=== PATIENT | male | born 1960 | race African-American/Black ===

== ENCOUNTER 2020-06-03 12:34 | Emergency (ER) | payer SELFPAY ==
[~2020-06-03] VITALS: Ht 182.9 cm; Wt 90.7 kg
[2020-06-03 12:47] VITALS: BP 142/78
== END 2020-06-03 14:17 | disposition left against medical advice (07) ==
LOC: EDBD 12:34 → ER 12:34
DX: F20.9 Schizophrenia, unspecified (principal); F31.9 Bipolar disorder, unspecified; F17.210 Nicotine dependence, cigarettes, uncomplicated; Z59.0 Homelessness

== ENCOUNTER 2020-06-27 19:12 | Emergency (ER) | payer SELFPAY ==
[~2020-06-27] VITALS: Ht 205.7 cm; Wt 140.6 kg
[2020-06-27 20:00] VITALS: BP 129/88
[2020-06-27] MEDS ORDERED: ACCU-CHEK COMFORT CURVE STRIP VI ONE (20:15)
[2020-06-27 21:57] LABS: Basophils # (auto) 0.1 10 ^3/uL (0-0.2); Basophils % (auto) 0.8 % (0.0-2.0); Eosinophils # (auto) 0.1 10 ^3/uL (0-0.8); Lymphocytes # (auto) 2.2 10 ^3/uL (0.4-5.4); Monocytes # (auto) 0.7 10 ^3/uL (0-1.3); Neutrophils % (auto) 56.8 % (37.0-80.0)
[2020-06-27 22:00] LABS: Eosinophils % (auto) 2.1 % (0.0-7.0); Hematocrit 40.8 % (41.0-53.0); Hemoglobin 12.8 g/dL (13.5-17.5); Lymphocytes % (auto) 30.6 % (10.0-50.0); Mean Corpuscular Hemoglobin 25.9 pg (28.0-32.0); Mean Corpuscular Hgb Conc. 31.3 g/dL (32.0-36.0); Mean Corpuscular Volume 82.6 fL (80.0-100.0); Monocytes % (auto) 9.7 % (0.0-12.0); Nucleated Red Blood Cells % 0.1 %; Platelet Count (auto) 257 10^3/uL (140-450); Red Blood Cells 4.95 10^6/uL (4.5-5.90); Red Cell Distribution Width 17.4 % (11.8-14.3); White Blood Cell 7.1 10^3/uL (4.4-10.8)
[2020-06-27 22:14] LABS: Potassium 3.9 mmol/L (3.5-5.1); Salicylate 1.8 mg/dL (2.8-20.0)
[2020-06-27 22:20] LABS: Albumin 3.6 g/dL (3.4-5.0); BUN/Creatinine Ratio 18.8; Bilirubin, Total 0.4 mg/dL (0.2-1.0); Calcium 9.1 mg/dL (8.5-10.1); Total Protein 7.6 g/dL (6.4-8.2)
[2020-06-27 22:23] LABS: Acetaminophen < 2.0 ug/mL (10-30)
== END 2020-06-28 07:30 | disposition left against medical advice (07) ==
LOC: ER 19:12
DX: F23 Brief psychotic disorder (principal); R45.850 Homicidal ideations
CPT/HCPCS: 36415; 73090; 73130; 80053; 80329; 85025

== ENCOUNTER 2020-07-25 17:50 | Inpatient (IN) | payer OTHER ==
[~2020-07-25] VITALS: Ht 188 cm; Wt 98.6 kg
[2020-07-25] MEDS ORDERED: DEXTROSE (50%) 50ML SYRG IV ONE (18:30)
[2020-07-25 20:02] LABS: Basophils # (auto) 0 10 ^3/uL (0-0.2); Basophils % (auto) 0.3 % (0.0-2.0); Eosinophils # (auto) 0 10 ^3/uL (0-0.8); Hematocrit 40.8 % (41.0-53.0); Hemoglobin 13.1 g/dL (13.5-17.5); Lymphocytes # (auto) 0.6 10 ^3/uL (0.4-5.4); Lymphocytes % (auto) 29.5 % (10.0-50.0); Mean Corpuscular Hemoglobin 26.7 pg (28.0-32.0); Mean Corpuscular Hgb Conc. 32.2 g/dL (32.0-36.0); Mean Corpuscular Volume 82.8 fL (80.0-100.0); Monocytes # (auto) 0.2 10 ^3/uL (0-1.3); Neutrophils # (auto) 1.3 10 ^3/uL (1.6-8.6); Neutrophils % (auto) 61.2 % (37.0-80.0); Nucleated Red Blood Cells % 0.3 %; Platelet Count (auto) 108 10^3/uL (140-450); Red Blood Cells 4.93 10^6/uL (4.5-5.90); Red Cell Distribution Width 17.7 % (11.8-14.3); White Blood Cell 2.1 10^3/uL (4.4-10.8)
[2020-07-25 20:21] LABS: Albumin 3.4 g/dL (3.4-5.0); Calcium 9.2 mg/dL (8.5-10.1); Magnesium 2.3 mg/dL (1.6-2.6); Potassium 4.3 mmol/L (3.5-5.1)
[2020-07-25 20:26] LABS: BUN/Creatinine Ratio 31.3; Bilirubin, Total 0.2 mg/dL (0.2-1.0); Total Protein 7.6 g/dL (6.4-8.2)
[2020-07-26] MEDS ORDERED: D5W/SOD CHL 0.45% 1,000 ML IV ONE (00:15)
[2020-07-26] MEDS ORDERED: NALOXONE HCL 0.4 MG/ML VIAL IV ONE ×2 (02:30→05:45)
[2020-07-26] MEDS ORDERED: LORazepam 2MG/ML-1ML VIAL IV ONE (10:30)
[2020-07-27] MEDS ORDERED: DEXTROSE (50%) 50ML SYRG IV ONE (04:45)
[2020-07-27] MEDS ORDERED: D5W/SOD CHL 0.45% 1,000 ML IV SCH (07:30)
[2020-07-27] MEDS ORDERED: InsuLIN REG 1unit/0.01ml Soln (100units/ml) SC SCH (08:00)
[2020-07-27] MEDS: DEXTROSE (50%) 50ML SYRG IV PRN (08:01)
[2020-07-27] MEDS: ACCU-CHEK COMFORT CURVE STRIP VI SCH ×4 (08:01→20:12)
[2020-07-27 09:43] LABS: Urine WBC None Seen /hpf (0 - 3)
[2020-07-27] MEDS ORDERED: NITROGLYCERIN 0.4 MG SL TAB SL PRN (10:00)
[2020-07-27] MEDS ORDERED: MORPHINE SULF INJ 2 MG/ML SYRINGE 1ML IV PRN (10:00)
[2020-07-27 10:02] LABS: Urine Bacteria NONE SEEN /hpf (None Seen); Urine Blood Negative /uL (Negative); Urine Specific Gravity 1.013 (1.001-1.035); Urine WBC None Seen /hpf (0 - 3)
[2020-07-27 10:16] LABS: Alcohol, Urine < 3.0 mg/dL (0-10); Amphetamine Screen, Urine NEGATIVE (NEGATIVE); Barbiturate Scree,Urine NEGATIVE (NEGATIVE); Benzodiazephine Screen, Urine NEGATIVE (NEGATIVE); Cannabinoid Screen, Urine NEGATIVE (NEGATIVE); Cocaine Screen, Urine NEGATIVE (NEGATIVE); Opiate Scree,Urine NEGATIVE (NEGATIVE); Phencyclidine Screen, Urine NEGATIVE (NEGATIVE)
[2020-07-27] MEDS: SODIUM CHLORIDE 0.9% 1,000 ML IV SCH ×2 (10:29→22:15)
[2020-07-27 11:05] LABS: Urine Bacteria NONE SEEN /hpf (None Seen); Urine Blood Negative /uL (Negative); Urine Specific Gravity 1.013 (1.001-1.035)
[2020-07-27 16:40] VITALS: BP 117/77
[2020-07-27] MEDS: FAMOTIDINE 20 MG TAB PO SCH (22:15)
[2020-07-28] VITALS: BP 112/79
[2020-07-28] MEDS: ACCU-CHEK COMFORT CURVE STRIP VI SCH ×6 (04:01→20:02)
[2020-07-28] MEDS: SODIUM CHLORIDE 0.9% 1,000 ML IV SCH (06:15)
[2020-07-28 07:28] LABS: Basophils # (auto) 0 10 ^3/uL (0-0.2); Hemoglobin 13.7 g/dL (13.5-17.5); Lymphocytes # (auto) 0.7 10 ^3/uL (0.4-5.4); Monocytes # (auto) 0.4 10 ^3/uL (0-1.3); Neutrophils # (auto) 1.8 10 ^3/uL (1.6-8.6); Nucleated Red Blood Cells % 0.6 %
[2020-07-28 07:32] LABS: Basophils % (auto) 0.2 % (0.0-2.0); Eosinophils # (auto) 0 10 ^3/uL (0-0.8); Eosinophils % (auto) 1.4 % (0.0-7.0); Hematocrit 42.1 % (41.0-53.0); Lymphocytes % (auto) 24.1 % (10.0-50.0); Mean Corpuscular Hemoglobin 26.6 pg (28.0-32.0); Mean Corpuscular Hgb Conc. 32.5 g/dL (32.0-36.0); Monocytes % (auto) 12.3 % (0.0-12.0); Platelet Count (auto) 97 10^3/uL (140-450); Red Blood Cells 5.14 10^6/uL (4.5-5.90); Red Cell Distribution Width 17.4 % (11.8-14.3); White Blood Cell 2.9 10^3/uL (4.4-10.8)
[2020-07-28 07:43] LABS: Potassium 4.2 mmol/L (3.5-5.1)
[2020-07-28 07:54] LABS: Albumin 2.9 g/dL (3.4-5.0); Bilirubin, Total 0.3 mg/dL (0.2-1.0); Calcium 9.2 mg/dL (8.5-10.1)
[2020-07-28 09:00] VITALS: BP 111/69
[2020-07-28] MEDS: FAMOTIDINE 20 MG TAB PO SCH ×2 (11:29→21:48)
[2020-07-28] MEDS: ASPirin 81 mg TAB PO SCH (11:29)
[2020-07-28] MEDS: THIAMINE 100mg/ml INJ (200mg/2ml VIAL) IV SCH (13:30)
[2020-07-28] MEDS: D5W/SOD CHLO 0.9% 1,000 ML IV SCH ×2 (13:42→21:48)
[2020-07-28 16:00] VITALS: BP 105/57
[2020-07-28 22:00] VITALS: BP 126/77
[2020-07-29] MEDS: ACCU-CHEK COMFORT CURVE STRIP VI SCH ×7 (00:26→23:10)
[2020-07-29] MEDS ORDERED: FUROSEMIDE 40 MG/4 ML VIAL IV ONE (03:15)
[2020-07-29] MEDS ORDERED: FUROSEMIDE 40 MG/4 ML VIAL ONE (03:18)
[2020-07-29] MEDS: DEXTROSE (50%) 50ML SYRG IV PRN (04:42)
[2020-07-29] MEDS: D5W/SOD CHLO 0.9% 1,000 ML IV SCH ×2 (05:30→13:30)
[2020-07-29 05:41] VITALS: BP 113/69
[2020-07-29 06:48] LABS: Basophils # (auto) 0 10 ^3/uL (0-0.2); Basophils % (auto) 0.2 % (0.0-2.0); Eosinophils # (auto) 0 10 ^3/uL (0-0.8); Eosinophils % (auto) 0.1 % (0.0-7.0); Hemoglobin 15.2 g/dL (13.5-17.5); Neutrophils # (auto) 8.6 10 ^3/uL (1.6-8.6); Nucleated Red Blood Cells % 0.2 %; Red Cell Distribution Width 17.3 % (11.8-14.3)
[2020-07-29 06:50] LABS: Hematocrit 46.6 % (41.0-53.0); Lymphocytes # (auto) 0.3 10 ^3/uL (0.4-5.4); Lymphocytes % (auto) 3.6 % (10.0-50.0); Mean Corpuscular Hemoglobin 26.7 pg (28.0-32.0); Mean Corpuscular Hgb Conc. 32.6 g/dL (32.0-36.0); Mean Corpuscular Volume 81.8 fL (80.0-100.0); Monocytes # (auto) 0.5 10 ^3/uL (0-1.3); Monocytes % (auto) 5.7 % (0.0-12.0); Neutrophils % (auto) 90.4 % (37.0-80.0); Platelet Count (auto) 89 10^3/uL (140-450); White Blood Cell 9.5 10^3/uL (4.4-10.8)
[2020-07-29 07:06] LABS: Albumin 3.3 g/dL (3.4-5.0); Calcium 9.6 mg/dL (8.5-10.1); Potassium 4.2 mmol/L (3.5-5.1)
[2020-07-29 07:12] LABS: Bilirubin, Total 0.4 mg/dL (0.2-1.0); Total Protein 7.8 g/dL (6.4-8.2)
[2020-07-29 08:00] VITALS: BP 104/67
[2020-07-29] MEDS: ASPirin 81 mg TAB PO SCH (10:23)
[2020-07-29] MEDS: THIAMINE 100mg/ml INJ (200mg/2ml VIAL) IV SCH (10:23)
[2020-07-29] MEDS: FAMOTIDINE 20 MG TAB PO SCH ×2 (10:24→23:10)
[2020-07-29] MEDS: FUROSEMIDE 40 MG/4 ML VIAL IV SCH ×2 (10:26→18:53)
[2020-07-29] MEDS ORDERED: LORazepam 2MG/ML-1ML VIAL IV ONE (11:45)
[2020-07-29 16:00] VITALS: BP 100/67
[2020-07-29 22:00] VITALS: BP 99/64
[2020-07-30 05:00] VITALS: BP 101/67
[2020-07-30] MEDS: D5W/SOD CHLO 0.9% 1,000 ML IV SCH ×4 (05:30→21:30)
[2020-07-30] MEDS: FUROSEMIDE 40 MG/4 ML VIAL IV SCH ×2 (05:49→18:26)
[2020-07-30] MEDS: ACCU-CHEK COMFORT CURVE STRIP VI SCH ×5 (05:49→20:22)
[2020-07-30 08:00] VITALS: BP 114/60
[2020-07-30] MEDS: FAMOTIDINE 20 MG TAB PO SCH ×2 (10:44→21:52)
[2020-07-30] MEDS: ASPirin 81 mg TAB PO SCH (10:44)
[2020-07-30] MEDS: THIAMINE 100mg/ml INJ (200mg/2ml VIAL) IV SCH (10:44)
[2020-07-30 16:00] VITALS: BP 102/45
[2020-07-30 22:00] VITALS: BP 107/68
[2020-07-30] MEDS ORDERED: TEMAZEPAM 15 MG CAP PO ONE (22:30)
[2020-07-31] MEDS: ACCU-CHEK COMFORT CURVE STRIP VI SCH ×6 (04:03→20:13)
[2020-07-31 05:00] VITALS: BP 133/69
[2020-07-31] MEDS: D5W/SOD CHLO 0.9% 1,000 ML IV SCH ×3 (05:30→20:34)
[2020-07-31] MEDS: FUROSEMIDE 40 MG/4 ML VIAL IV SCH (06:00)
[2020-07-31 08:10] VITALS: BP 126/64
[2020-07-31 09:00] VITALS: BP 126/64
[2020-07-31] MEDS: ASPirin 81 mg TAB PO SCH (09:19)
[2020-07-31] MEDS: FAMOTIDINE 20 MG TAB PO SCH ×2 (09:19→22:00)
[2020-07-31] MEDS: THIAMINE 100mg/ml INJ (200mg/2ml VIAL) IV SCH (09:19)
[2020-07-31 12:00] VITALS: BP 100/66
[2020-07-31] MEDS: FUROSEMIDE 20 MG TAB PO SCH (17:52)
[2020-07-31] MEDS ORDERED: TEMAZEPAM 15 MG CAP PO ONE (22:00)
[2020-08-01] MEDS: ACCU-CHEK COMFORT CURVE STRIP VI SCH ×6 (00:54→19:58)
[2020-08-01] MEDS: D5W/SOD CHLO 0.9% 1,000 ML IV SCH ×3 (04:42→20:32)
[2020-08-01 05:22] VITALS: BP 112/72
[2020-08-01] MEDS: FUROSEMIDE 20 MG TAB PO SCH ×2 (06:15→17:15)
[2020-08-01 07:46] VITALS: BP 121/67
[2020-08-01] MEDS: FAMOTIDINE 20 MG TAB PO SCH ×2 (11:13→21:50)
[2020-08-01] MEDS: THIAMINE 100mg/ml INJ (200mg/2ml VIAL) IV SCH (11:13)
[2020-08-01] MEDS: ASPirin 81 mg TAB PO SCH (11:13)
[2020-08-01 16:10] VITALS: BP 129/73
[2020-08-01 21:22] VITALS: BP 112/72
[2020-08-02] MEDS: ACCU-CHEK COMFORT CURVE STRIP VI SCH ×6 (00:45→20:24)
[2020-08-02 04:32] VITALS: BP 108/66
[2020-08-02] MEDS: D5W/SOD CHLO 0.9% 1,000 ML IV SCH ×3 (06:18→21:14)
[2020-08-02] MEDS: FUROSEMIDE 20 MG TAB PO SCH ×2 (06:25→18:09)
[2020-08-02 08:05] VITALS: BP 122/62
[2020-08-02] MEDS: THIAMINE 100mg/ml INJ (200mg/2ml VIAL) IV SCH (10:24)
[2020-08-02] MEDS: ASPirin 81 mg TAB PO SCH (10:25)
[2020-08-02] MEDS: FAMOTIDINE 20 MG TAB PO SCH ×2 (10:25→22:25)
[2020-08-02 13:00] VITALS: BP 125/65
[2020-08-02 17:10] VITALS: BP 128/68
[2020-08-02 21:02] VITALS: BP 117/78
[2020-08-03] MEDS: ACCU-CHEK COMFORT CURVE STRIP VI SCH ×6 (00:15→21:21)
[2020-08-03 05:05] VITALS: BP 114/69
[2020-08-03] MEDS: D5W/SOD CHLO 0.9% 1,000 ML IV SCH ×3 (05:52→21:30)
[2020-08-03] MEDS: FUROSEMIDE 20 MG TAB PO SCH ×2 (05:53→17:46)
[2020-08-03 08:00] VITALS: BP 119/79
[2020-08-03] MEDS: ASPirin 81 mg TAB PO SCH (09:37)
[2020-08-03] MEDS: FAMOTIDINE 20 MG TAB PO SCH ×2 (09:38→22:07)
[2020-08-03] MEDS: THIAMINE 100mg/ml INJ (200mg/2ml VIAL) IV SCH ×2 (09:38→10:00)
[2020-08-03 17:00] VITALS: BP 136/72
[2020-08-03 22:00] VITALS: BP 120/67
[2020-08-04] MEDS: ACCU-CHEK COMFORT CURVE STRIP VI SCH ×6 (00:24→21:29)
[2020-08-04 05:00] VITALS: BP 124/66
[2020-08-04] MEDS: D5W/SOD CHLO 0.9% 1,000 ML IV SCH ×3 (05:30→21:29)
[2020-08-04] MEDS: FUROSEMIDE 20 MG TAB PO SCH ×2 (06:26→18:00)
[2020-08-04 08:00] VITALS: BP 126/79
[2020-08-04] MEDS: ASPirin 81 mg TAB PO SCH (09:30)
[2020-08-04] MEDS: FAMOTIDINE 20 MG TAB PO SCH ×2 (09:30→23:16)
[2020-08-04] MEDS: THIAMINE 100mg/ml INJ (200mg/2ml VIAL) IV SCH (10:00)
[2020-08-04 16:00] VITALS: BP 112/74
[2020-08-05] VITALS: BP 121/71
[2020-08-05] MEDS: ACCU-CHEK COMFORT CURVE STRIP VI SCH ×6 (00:14→22:23)
[2020-08-05] MEDS: D5W/SOD CHLO 0.9% 1,000 ML IV SCH ×3 (05:30→21:30)
[2020-08-05] MEDS: FUROSEMIDE 20 MG TAB PO SCH ×2 (06:23→18:37)
[2020-08-05 08:00] VITALS: BP 122/67
[2020-08-05 08:35] LABS: Mean Corpuscular Hemoglobin 26.5 pg (28.0-32.0); Mean Corpuscular Hgb Conc. 32.5 g/dL (32.0-36.0); Mean Corpuscular Volume 81.5 fL (80.0-100.0); Platelet Count (auto) 218 10^3/uL (140-450); Red Blood Cells 5.28 10^6/uL (4.5-5.90); Red Cell Distribution Width 16.3 % (11.8-14.3); White Blood Cell 4.5 10^3/uL (4.4-10.8)
[2020-08-05 08:47] LABS: Basophils % (manual) 0 (0.0-2.0); Blast Cells 0; Eosinophils % (manual) 0 (0-7); Myelocytes % 0; Promyelocytes % 0; Reactive Lymphocytes 0
[2020-08-05 09:26] LABS: Albumin 3.1 g/dL (3.4-5.0); Calcium 8.8 mg/dL (8.5-10.1); Potassium 3.9 mmol/L (3.5-5.1)
[2020-08-05 09:29] LABS: BUN/Creatinine Ratio 22.8; Bilirubin, Total 0.4 mg/dL (0.2-1.0); Total Protein 8.2 g/dL (6.4-8.2)
[2020-08-05] MEDS: THIAMINE 100mg/ml INJ (200mg/2ml VIAL) IV SCH (10:00)
[2020-08-05] MEDS: FAMOTIDINE 20 MG TAB PO SCH ×2 (10:16→22:19)
[2020-08-05] MEDS: ASPirin 81 mg TAB PO SCH (10:16)
[2020-08-05 12:42] LABS: Band Neutrophils % (manual) 1; Lymphocytes % (manual) 18 (10.0-50.0); Metamyelocytes % 1; Monocytes % (manual) 21 (0-12)
[2020-08-05 13:22] LABS: INR 1.05 (0.9-1.15)
[2020-08-05 16:19] VITALS: BP 107/71
[2020-08-05 23:53] VITALS: BP 110/49
[2020-08-06] MEDS: ACCU-CHEK COMFORT CURVE STRIP VI SCH ×7 (00:30→23:58)
[2020-08-06 04:41] VITALS: BP 123/68
[2020-08-06] MEDS: D5W/SOD CHLO 0.9% 1,000 ML IV SCH (05:30)
[2020-08-06] MEDS: FUROSEMIDE 20 MG TAB PO SCH ×2 (06:20→18:00)
[2020-08-06 08:17] VITALS: BP 111/71
[2020-08-06] MEDS: THIAMINE 100mg/ml INJ (200mg/2ml VIAL) IV SCH (10:00)
[2020-08-06] MEDS: FAMOTIDINE 20 MG TAB PO SCH ×2 (10:04→21:03)
[2020-08-06] MEDS: ASPirin 81 mg TAB PO SCH (10:04)
[2020-08-06 16:09] VITALS: BP 100/60
[2020-08-06 22:00] VITALS: BP 113/60
[2020-08-07] MEDS: ACCU-CHEK COMFORT CURVE STRIP VI SCH ×5 (04:12→21:18)
[2020-08-07 05:02] VITALS: BP 129/68
[2020-08-07] MEDS: FUROSEMIDE 20 MG TAB PO SCH ×2 (06:23→17:59)
[2020-08-07 07:45] VITALS: BP 118/64
[2020-08-07 08:15] VITALS: BP 118/64
[2020-08-07 08:32] LABS: Hematocrit 41.2 % (41.0-53.0); Hemoglobin 13.8 g/dL (13.5-17.5); Mean Corpuscular Hemoglobin 27.1 pg (28.0-32.0); Mean Corpuscular Hgb Conc. 33.4 g/dL (32.0-36.0); Mean Corpuscular Volume 81.1 fL (80.0-100.0); Platelet Count (auto) 261 10^3/uL (140-450); Red Blood Cells 5.08 10^6/uL (4.5-5.90); Red Cell Distribution Width 16.3 % (11.8-14.3); White Blood Cell 3.3 10^3/uL (4.4-10.8)
[2020-08-07 08:40] LABS: Basophils % (manual) 0 (0.0-2.0); Blast Cells 0; Metamyelocytes % 0; Promyelocytes % 0; Reactive Lymphocytes 0
[2020-08-07 08:45] LABS: Potassium 3.5 mmol/L (3.5-5.1)
[2020-08-07 08:50] LABS: Albumin 3.1 g/dL (3.4-5.0); BUN/Creatinine Ratio 18.7; Bilirubin, Total 0.3 mg/dL (0.2-1.0); Calcium 8.4 mg/dL (8.5-10.1)
[2020-08-07] MEDS: ASPirin 81 mg TAB PO SCH (09:01)
[2020-08-07] MEDS: FAMOTIDINE 20 MG TAB PO SCH ×2 (09:01→22:34)
[2020-08-07] MEDS: THIAMINE 100mg/ml INJ (200mg/2ml VIAL) IV SCH (09:01)
[2020-08-07 14:26] LABS: Band Neutrophils % (manual) 14; Eosinophils % (manual) 1 (0-7); Lymphocytes % (manual) 32 (10.0-50.0); Monocytes % (manual) 26 (0-12); Myelocytes % 1
[2020-08-07 15:37] VITALS: BP 111/66
[2020-08-07 22:00] VITALS: BP 116/61
[2020-08-08] MEDS: ACCU-CHEK COMFORT CURVE STRIP VI SCH ×7 (04:13→23:39)
[2020-08-08 05:00] VITALS: BP 105/67
[2020-08-08] MEDS: FUROSEMIDE 20 MG TAB PO SCH ×2 (06:00→17:15)
[2020-08-08 09:00] VITALS: BP 120/68
[2020-08-08] MEDS: ASPirin 81 mg TAB PO SCH (09:13)
[2020-08-08] MEDS: THIAMINE 100mg/ml INJ (200mg/2ml VIAL) IV SCH (09:13)
[2020-08-08] MEDS: FAMOTIDINE 20 MG TAB PO SCH ×2 (09:13→23:00)
[2020-08-08 16:00] VITALS: BP 127/67
[2020-08-08 22:00] VITALS: BP 109/78
[2020-08-09] MEDS: ACCU-CHEK COMFORT CURVE STRIP VI SCH ×5 (03:53→20:45)
[2020-08-09 05:00] VITALS: BP 119/72
[2020-08-09] MEDS: FUROSEMIDE 20 MG TAB PO SCH ×2 (05:42→17:34)
[2020-08-09 07:31] LABS: Basophils # (auto) 0 10 ^3/uL (0-0.2); Basophils % (auto) 0.6 % (0.0-2.0); Eosinophils # (auto) 0 10 ^3/uL (0-0.8); Lymphocytes # (auto) 1.1 10 ^3/uL (0.4-5.4); Mean Corpuscular Volume 80.7 fL (80.0-100.0); Monocytes # (auto) 0.5 10 ^3/uL (0-1.3); Neutrophils # (auto) 1.7 10 ^3/uL (1.6-8.6); Nucleated Red Blood Cells % 0.2 %; White Blood Cell 3.3 10^3/uL (4.4-10.8)
[2020-08-09 07:33] LABS: Eosinophils % (auto) 0.7 % (0.0-7.0); Hematocrit 40.5 % (41.0-53.0); Hemoglobin 13.6 g/dL (13.5-17.5); Lymphocytes % (auto) 32.1 % (10.0-50.0); Mean Corpuscular Hgb Conc. 33.5 g/dL (32.0-36.0); Monocytes % (auto) 16.4 % (0.0-12.0); Neutrophils % (auto) 50.2 % (37.0-80.0); Platelet Count (auto) 257 10^3/uL (140-450); Red Blood Cells 5.02 10^6/uL (4.5-5.90); Red Cell Distribution Width 16.3 % (11.8-14.3)
[2020-08-09 08:30] VITALS: BP 94/56
[2020-08-09] MEDS: THIAMINE 100mg/ml INJ (200mg/2ml VIAL) IV SCH (10:00)
[2020-08-09] MEDS: ASPirin 81 mg TAB PO SCH (10:17)
[2020-08-09] MEDS: FAMOTIDINE 20 MG TAB PO SCH ×2 (10:17→21:00)
[2020-08-09 16:03] VITALS: BP 94/56
[2020-08-09 16:22] VITALS: BP 101/62
[2020-08-09 22:00] VITALS: BP 114/63
[2020-08-10] MEDS: ACCU-CHEK COMFORT CURVE STRIP VI SCH ×3 (04:55→08:52)
[2020-08-10 05:00] VITALS: BP 126/62
[2020-08-10] MEDS: FUROSEMIDE 20 MG TAB PO SCH (05:43)
[2020-08-10 08:00] VITALS: BP 100/52
[2020-08-10] MEDS: THIAMINE 100mg/ml INJ (200mg/2ml VIAL) IV SCH (08:52)
[2020-08-10] MEDS: ASPirin 81 mg TAB PO SCH (08:53)
[2020-08-10] MEDS: FAMOTIDINE 20 MG TAB PO SCH (08:53)
== END 2020-08-10 09:30 | disposition home or self-care (01) | DRG 52 ==
LOC: ER 17:50 → EDBD 17:50 → TELE 17:51 → TELE-CENTR 07-27 16:41
PROVIDERS: ADMIT Internal Medicine; ATTEND Family Medicine
PROC: 0GBG3ZX Excision of Left Thyroid Gland Lobe, Percutaneous Approach, Diagnostic (ICD-10-PCS; principal; 2020-08-10)
PROC: 0GBH3ZX Excision of Right Thyroid Gland Lobe, Percutaneous Approach, Diagnostic (ICD-10-PCS; 2020-08-10)
DX: G92 Toxic encephalopathy (principal); E11.649 Type 2 diabetes mellitus with hypoglycemia without coma; D69.6 Thrombocytopenia, unspecified; F20.9 Schizophrenia, unspecified; F31.9 Bipolar disorder, unspecified; I10 Essential (primary) hypertension; Z20.822 Contact with and (suspected) exposure to COVID-19; G25.3 Myoclonus; I49.5 Sick sinus syndrome; F41.9 Anxiety disorder, unspecified; R27.8 Other lack of coordination; E04.2 Nontoxic multinodular goiter; Z79.4 Long term (current) use of insulin; Z59.0 Homelessness
CPT/HCPCS: 10022; 36415; 70450; 70551; 71045; 74018; 76536; 76942; 80053; 80307; 80320; 81001; 82140; 82550; 82962; 83036; 83735; 83880; 84443; 84484; 85007; 85025; 85027; 85610; 85652; 87426; 93005; 93306; 93886; 96365; 96375; 96376; G0378; J7042

== ENCOUNTER → 2020-08-13 | Emergency (ER) | payer OTHER | LOC: EDUNIT# 14:50 → EDBD 14:58 → ER 14:59 | DX: I46.9 Cardiac arrest, cause unspecified (principal); J96.01 Acute respiratory failure with hypoxia; E11.9 Type 2 diabetes mellitus without complications; I10 Essential (primary) hypertension | CPT/HCPCS: 31500; 92950 ==